=== PATIENT | female | born 1955 | race Caucasian/White ===

== ENCOUNTER 2017-10-25 07:51 | Outpatient (RCR) | payer BC | END 2017-11-15 | LOC: OT 07:51 | PROVIDERS: ATTEND Plastic Surgery | DX: M18.0 Bilateral primary osteoarthritis of first carpometacarpal joints (principal); S63.418A Traumatic rupture of collateral ligament of other finger at metacarpophalangeal and interphalangeal joint, initial encounter; M25.541 Pain in joints of right hand ==

== ENCOUNTER → 2017-12-05 | Outpatient (CLI) | payer BC ==
--- NOTE | 2017-12-05 23:18 | Diagnostic Imaging Report ---
EXAMINATION: PA and lateral views of the chest. COMPARISON: None CLINICAL HISTORY: Chronic cough DISCUSSION: Lines/tubes: None. Lungs: Lungs are well-inflated. Linear opacity in the superior to mid left lung with prominent lucency in the left upper lobe, which may represent large bulla or emphysematous changes. Sutures are noted in the left upper lung. Rest of the lungs is clear. No consolidation or pulmonary edema. Pleura: There is no pleural effusion or pneumothorax. Heart and mediastinum: Cardiomediastinal silhouette is unremarkable. Pulmonary vasculature is normal. Bones and soft tissues: No acute bony abnormalities. Degenerative changes in the thoracic spine IMPRESSION: No acute cardiopulmonary abnormalities. Findings in the left upper lobe may represent a large bolus or emphysematous changes. Postoperative changes are also noted in the left upper lung. Signed by: Dr. Nishant Li M.D. on 12/05/2017 11:14 PM
== END ==
LOC: RAD 16:36
PROVIDERS: ATTEND Family Medicine
DX: R05 Cough (principal)
CPT/HCPCS: 71046

== ENCOUNTER → 2018-01-26 | Day surgery (SDC) | payer BC ==
[~2018-01-26] MED LIST: ACETAMINOPHEN/CODEINE 300MG - 30MG TAB ONE; BUPIVACAINE HCL 0.5% INJ 30 ML VIAL INJ ONE; CEFAZOLIN SOD 1 GM VIAL ONE; DEXAMETHASONE SOD PHOS INJ 4 MG/ML VIAL ONE; FENTANYL CITRATE/PF 100MCG/2 ML INJ ONE; GABAPENTIN300 MG PO; LEVOTHYROXINE88 MCG PO; LIDOCAINE HCL 2% LOCAL INJ 5 ML SDV VIAL INJ ONE; MIDAZOLAM HCL 2 MG/2 ML VIAL ONE; MUPIROCIN 2% OINT 22 GM TUBE ONE; PRAVASTATIN SOD40 MG; PROPOFOL IV EMULSION 10 MG/ML 20 ML VIAL ONE; SEVOFLURANE INHAL SOLN 250 ML PEN BTL ONE; TRIAMCINOLONE ACET 40 MG/ML VIAL ONE
[2018-01-26 12:40] VITALS: BP 164/71
--- NOTE | 2018-01-27 10:54 | Operative Report ---
DATE OF PROCEDURE: January 26, 2018 PREOPERATIVE DIAGNOSES: Stenosing tenosynovitis of right ring finger and bilateral carpometacarpal joint osteoarthritis. POSTOPERATIVE DIAGNOSES: Stenosing tenosynovitis of right ring finger and bilateral carpometacarpal joint osteoarthritis. OPERATION PERFORMED: Tenovaginotomy of right ring finger and injection of bilateral carpometacarpal joints with cortisone and local anesthetic. ANESTHESIA: General. HISTORY: The patient is a 62-year-old right hand-dominant female who presents with stenosing tenosynovitis of the right ring finger that is recalcitrant to conservative treatment. The risks, benefits, and alternatives of treatment were discussed with the patient and he/she is prepared to undergo the procedure as outlined. DESCRIPTION OF PROCEDURE: The patient was brought to the operating theater. After the induction of adequate general anesthesia, the patient was prepped and draped in a supine position. A time out was performed by the entire operating room team. An oblique incision was marked out over the A1 michael of the right ring finger. The upper extremity was exsanguinated, and a tourniquet was inflated to a pressure of 250 mmHg. The incision was made through the skin and subcutaneous tissues. All venous tributaries were controlled with bipolar cautery. The incision was deepened through the palmar tissues. The neurovascular bundles on the radial and ulnar sides of the flexor tendon sheath were identified and retracted away from the flexor tendon sheath and preserved. The A1 michael of the affected finger was identified and incised longitudinally, taking care to protect and preserve the flexor tendons within the sheath. After the complete length of the michael had been transected, the tendons were placed in a range of motion. There was noted to be good motion without any locking. The wound was then copiously irrigated with bacteriostatic saline and closed with 5-0 nylon in an interrupted horizontal mattress fashion. A Marcaine field block was performed at the operative site. The tourniquet was deflated. All the fingers pinked up nicely. A sterile bulky conforming bandage was applied to the hand. Both CMC joints were then injected with 1 mL of Kenalog 40 mg/mL mixed in a 50:50 mixture of 0.5% Marcaine. The injections were done at the level of the CMC joints and then a sterile dressing was applied, and the patient was returned to the recovery room in satisfactory condition and was discharged with a postoperative instruction sheet as well as a followup appointment. Job#: [id number] ASHLEY
--- OUTSIDE RECORDS SUMMARY | 2018-01-31 12:55 | XMS REPORT | Clinical Summary ---
Author Author [facility] Organization [facility] Address Unknown Phone Unavailable Care Team Providers Care Visual Aid Expert Name Role Phone Herman Kc MD PCP Allergies No Known Allergies Current Medications Prescription Sig. Disp. Refills Start End Date Status Date pravastatin (PRAVACHOL) 2 07/05/19 Active 40 MG tablet 18 levothyroxine (SYNTHROID, Take 88 mcg by mouth Active LEVOXYL) 88 mcg tablet every morning. gabapentin (NEURONTIN) Take 400 mg by mouth 3 Active 400 mg capsule (three) times a day. Active Problems Not on file Encounters Date Type Specialty Care Team Description 12/12/2017 Telephone Obstetrics and Gynecology Aleta Pradhan RN 09/14/2017 Office Visit Obstetrics and Gynecology Sanjay Sargent MD Other female genital prolapse (Primary Dx); Rectocele after 01/25/2017 Social History Tobacco Use Types Packs/Day Years Used Date Former Smoker 35 Smokeless Tobacco: Never Used Alcohol Use Drinks/Week oz/Week Comments Yes Sex Assigned at Date Recorded Not on file Last Filed Vital Signs Vital Sign Reading Time Taken Blood Pressure 161/73 09/14/2017 9:37 AM CDT Pulse 81 09/14/2017 9:37 AM CDT Temperature - - Respiratory Rate - - Oxygen Saturation - - Inhaled Oxygen - - Concentration Weight 72.1 kg (159 lb) 09/14/2017 9:37 AM CDT Height 167.6 cm (5' 6") 09/14/2017 9:37 AM CDT Body Mass Index 25.66 09/14/2017 9:37 AM CDT Plan of Treatment Health Maintenance Due Date Last Done Comments CERVICAL CANCER SCREENING 06/22/1976 BREAST CANCER SCREENING 06/22/2005 COLON CANCER SCREENING 06/22/2005 SHINGRIX VACCINE (#1) 06/22/2005 ZOSTER VACCINE 2015 INFLUENZA VACCINE 11/16/2017 Results Not on fileafter 01/25/2017 Insurance Payer Benefit Subscriber ID Type Phone Address Plan / Group BCBS BCBS xxxxxxxxxxxx PPO MARTHA PPO/J[address] [place] [address]
--- OUTSIDE RECORDS SUMMARY | 2018-01-31 12:55 | XMS REPORT ---
Author Author [facility] Address Unknown Phone Unavailable Care Team Providers Care Dot Compliance Specialist Name Role Phone FRANCESCA JACINTO Unavailable Unavailable Problems This patient has no known problems. Allergies, Adverse Reactions, Alerts This patient has no known allergies or adverse reactions. Medications This patient has no known medications. Results Test Description Test Time Test Comments Text Results Atomic Results Result Comments CHEST 2 VIEWS 2017-12-05 23:12:00 [place] [address] Patient Name: CARLA OKEEFE MR #: [id number] : 1955 Age/Sex: 62/F Req #: [id number] Adm Physician: Ordered by: OPHELIA CUMMINS, FRANCESCA Shin MD Report #: [id number] Location: [facility] Room/Bed: Procedure: [id number] DX/CHEST 2 VIEWS Exam Date: 12/05/17 Exam Time: 1650 REPORT STATUS: Signed EXAMINATION: PA and lateral views of the chest. COMPARISON: None CLINICAL HISTORY: Chronic cough DISCUSSION: Lines/tubes: None. Lungs: Lungs are well-inflated. Linear opacity in the superior to mid left lung with prominent lucency in the left upper lobe, which may represent large bulla or emphysematous changes. Sutures are noted in the left upper lung. Rest of the lungs is clear. No consolidation or pulmonary edema. Pleura: There is no pleural effusion or pneumothorax. Heart and mediastinum: Cardiomediastinal silhouette is unremarkable. Pulmonary vasculature is normal. Bones and soft tissues: No acute bony abnormalities. Degenerative changes in the thoracic spine IMPRESSION: No acute cardiopulmonary abnormalities. Findings in the left upper lobe may represent a large bolus or emphysematous changes. Postoperative changes are also noted in the left upper lung. Signed by: Dr. Augustus Li M.D. on 12/05/2017 11:14 PM Dictated By: AUGUSTUS LI MD Transcribed By: DONNA on 12/05/175 COPY TO: FRANCESCA JACINTO
== END | disposition home or self-care (01) ==
LOC: OR 06:30
PROVIDERS: ATTEND Plastic Surgery
DX: M65.341 Trigger finger, right ring finger (principal); M18.0 Bilateral primary osteoarthritis of first carpometacarpal joints; Z01.810 Encounter for preprocedural cardiovascular examination; Z87.891 Personal history of nicotine dependence
CPT/HCPCS: 20600; 26055; 93005; J0690; J1100; J2001; J2250; J3301

== ENCOUNTER → 2020-01-03 | Day surgery (SDC) | payer BC, OTHER ==
[~2020-01-03] MED LIST changes: -ACETAMINOPHEN/CODEINE 300MG - 30MG TAB ONE; -CEFAZOLIN SOD 1 GM VIAL ONE; +CEFAZOLIN SOD 1 GM/NS 50ML 50 ML IV ONE; +KETOROLAC TROMETHAMINE 30 MG/ML VIAL ONE; +ONDANSETRON HCL INJ 2MG/ML 2ML 2 MG/ML VIAL ONE; -PRAVASTATIN SOD40 MG; +PRAVASTATIN SOD40 MG PO
[2020-01-03 08:15] VITALS: BP 146/68
--- NOTE | 2020-01-03 17:57 | Operative Report ---
DATE OF PROCEDURE: 01/03/2020 SURGEON: Antonio Luna MD PREOPERATIVE DIAGNOSES: 1. Right carpal tunnel syndrome. 2. Osteoarthritis, bilateral CMC carpometacarpal joints. POSTOPERATIVE DIAGNOSES: 1. Right carpal tunnel syndrome. 2. Flexor tenosynovitis right wrist. 3. Osteoarthritis, bilateral CMC carpometacarpal joints. PROCEDURES: 1. Right open carpal tunnel release. 2. Flexor tenosynovectomy right wrist. 3. Bilateral CMC joint injection with corticosteroid. ANESTHESIA: General. HISTORY: The patient is a 64-year-old female with EMG-proven right carpal tunnel syndrome. Risks, benefits and alternatives of treatment were discussed with the patient. The patient is prepared to undergo the procedure as outlined. DESCRIPTION OF PROCEDURE: The patient was brought to the operating theater. After the induction of adequate general inhalation anesthesia, the patient was prepped and draped in the supine position. A time out was performed by the entire operating room team. A 2.5 cm incision was marked out in the intrathenar space. The right upper extremity was exsanguinated, and a tourniquet was inflated to a pressure of 250 mmHg. The incision was made through the skin and subcutaneous tissues and all venous tributaries were controlled with bipolar cautery. The incision was deepened through the palmar fascia until the transverse carpal ligament was identified. The ligament was sharply sectioned, taking care to protect and preserve the median nerve underlying it. After the complete width of the ligament had been transected, the distal volar forearm fascia was divided under direct view. Proliferative flexor tenosynovium was noticed to encompass the median nerve and this was radically excised. After performing this maneuver, the nerve was noted to lie adequately decompressed. The wound was copiously irrigated with bacteriostatic saline, closed with 5-0 nylon in an interrupted horizontal mattress fashion. A Marcaine field block was performed at the operative site. Tourniquet was deflated. All of the fingers pinked up nicely and a sterile bulking conforming bandage was applied to the hand and the wrist. A fiberglass splint was fashioned to maintain the wrist in a modest amount of extension. This was held in place with a loosely wrapped Dean wrap. The patient tolerated the procedure well and was brought to the recovery room in satisfactory condition and discharged with a postoperative instruction sheet as well as a followup appointment. A 40 mg (1 mL of Kenalog) was mixed with 1 mL of 0.5% plain Marcaine and this was injected into the CMC joints on each hand and a sterile bandage was applied. MD AMIE Narvaez/MICHA /[id number]
== END | disposition home or self-care (01) ==
LOC: OR 05:22
PROVIDERS: ATTEND Plastic Surgery
DX: M19.042 Primary osteoarthritis, left hand (principal); M19.041 Primary osteoarthritis, right hand; G56.01 Carpal tunnel syndrome, right upper limb; M65.331 Trigger finger, right middle finger; M65.831 Other synovitis and tenosynovitis, right forearm; I49.9 Cardiac arrhythmia, unspecified; E03.9 Hypothyroidism, unspecified; Z01.810 Encounter for preprocedural cardiovascular examination; Z01.812 Encounter for preprocedural laboratory examination; Z11.59 Encounter for screening for other viral diseases
CPT/HCPCS: 20605; 25115; 93005; J0690; J1100; J1885; J2001; J2405; J2704; J3301; U0002; J2250; J3010